=== PATIENT | male | born 1995 | race Caucasian/White ===

== ENCOUNTER 2025-09-06 16:34 | Emergency (ER) | payer OTHER ==
[~2025-09-06] VITALS: Ht 167.6 cm; Wt 85.3 kg
[2025-09-06 17:14] LABS: APPEARANCE,URINE CLEAR (CLEAR); BLOOD, URINE NEGATIVE Ery/uL (NEGATIVE); LEUKOCYTE ESTERASE ,URINE NEGATIVE (NEGATIVE); NITRITE, URINE NEGATIVE (NEGATIVE); UGLUCOSE NEGATIVE (NEGATIVE)
[2025-09-06] MEDS ORDERED: KETOROLAC TROMETHAMINE INJ 30 MG/ML VIAL ONE (17:38)
[2025-09-06] MEDS: KETOROLAC TROMETHAMINE INJ 30 MG/ML VIAL IM ONE (17:44)
[2025-09-06 17:53] LABS: PLATELET COUNT (AUTO) 225 K/uL (150-450); RED BLOOD CELL COUNT(AUTO) 4.68 MIL/uL (4.5-6.0); RED CELL DISTRIBUTION WIDTH 13.4 % (11.5-15.0); WHITE BLOOD COUNT (AUTO) 8.4 K/uL (4.3-11.0)
[2025-09-06 17:54] LABS: CALCIUM, SERUM 8.5 mg/dL (8.5-10.1); CREATININE 0.9 mg/dL (0.6-1.3); SODIUM SERUM 139.0 mmol/L (136-145); UREA NITROGEN, BLOOD 12.0 mg/dL (7-18)
[2025-09-06 18:01] LABS: ASPARTATE AMINOTRANSFERASE 25.0 U/L (15-37); TOTAL PROTEIN, SERUM 7.1 g/dL (6.4-8.2)
[2025-09-06] MEDS ORDERED: CT SWABBABLE VALVE TRANS SET 1 EA INFUS.SET MC ONE (18:53)
[2025-09-06] MEDS ORDERED: IOHEXOL-300 100 ML VIAL IV ONE (18:53)
[2025-09-06] MEDS ORDERED: IV NS 0.9% 0 ML IV ONE (18:53)
[2025-09-06] MEDS ORDERED: IV NS 0.9% 1,000 ML BAG IV ONE (19:00)
[2025-09-06] MEDS ORDERED: MORPHINE SULFATE INJ 2 MG/ML DISP.SYRIN IV ONE (19:00)
[2025-09-06] MEDS ORDERED: ONDANSETRON HCL/PF 4 MG/2 ML VIAL IV ONE (19:00)
[2025-09-06] MEDS ORDERED: ONDANSETRON HCL/PF 4 MG/2 ML VIAL ONE (19:06)
[2025-09-06] MEDS ORDERED: MORPHINE SULFATE INJ 4 MG/ML DISP.SYRIN ONE (19:06)
[2025-09-06] MEDS ORDERED: POTASSIUM CHLORIDE 20 MEQ TAB.PRT.SR PO ONE (19:07)
[2025-09-06] MEDS ORDERED: oxyCODONE/APAP (5/325 MG) 1 UDTAB TABLET ONE (19:10)
[2025-09-06] MEDS: POTASSIUM CHLORIDE 20 MEQ TAB.PRT.SR PO ONE (19:11)
[2025-09-06] MEDS: oxyCODONE/APAP (5/325 MG) 1 UDTAB TABLET PO ONE (19:13)
[2025-09-06 19:16] VITALS: BP 143/89; TEMP 98.4; O2SAT 99
[2025-09-08 07:08] LABS: CHLAMYDIA TRACHOMATIS NAA Negative (Negative); NEISSERIA GONORRHOEAE NAA Negative (Negative)
== END 2025-09-06 19:16 | disposition home or self-care (01) ==
LOC: ER 16:34
DX: N50.811 Right testicular pain (principal); K50.90 Crohn's disease, unspecified, without complications; Z87.19 Personal history of other diseases of the digestive system; Z98.890 Other specified postprocedural states
CPT/HCPCS: 99285; 96372; 76870; 85025; 80048; 80076; 81003; 36415; 87491; 87591; J1885; J7030; J2270; J2405; J7050; Q9967

== ENCOUNTER 2025-09-12 10:53 | Emergency (ER) | payer OTHER ==
[~2025-09-12] VITALS: Ht 167.6 cm; Wt 85.3 kg
[2025-09-12 11:54] LABS: PLATELET COUNT (AUTO) 263 K/uL (150-450); RED BLOOD CELL COUNT(AUTO) 4.82 MIL/uL (4.5-6.0); RED CELL DISTRIBUTION WIDTH 13.0 % (11.5-15.0); WHITE BLOOD COUNT (AUTO) 8.8 K/uL (4.3-11.0)
[2025-09-12 12:01] LABS: CALCIUM, SERUM 9.2 mg/dL (8.5-10.1); CREATININE 1.0 mg/dL (0.6-1.3); SODIUM SERUM 141.0 mmol/L (136-145); UREA NITROGEN, BLOOD 10.0 mg/dL (7-18)
[2025-09-12 12:07] LABS: INR 1.03 (0.91-1.10)
[2025-09-12 12:10] LABS: LACTIC ACID 1.8 mmol/L (0.4-2.0)
[2025-09-12] MEDS ORDERED: IOHEXOL-350 100 ML VIAL IV ONE (12:10)
[2025-09-12] MEDS ORDERED: ENOXAPARIN SODIUM 80 MG/0.8 ML DISP.SYRIN SQ ONE (14:00)
[2025-09-12] MEDS ORDERED: MORPHINE SULFATE INJ 4 MG/ML DISP.SYRIN ONE ×3 (14:21→20:11)
[2025-09-12] MEDS: MORPHINE SULFATE INJ 2 MG/ML DISP.SYRIN IV ONE ×3 (14:26→20:14)
[2025-09-12] MEDS ORDERED: ENOXAPARIN SODIUM 30 MG/0.3 ML DISP.SYRIN ONE (14:42)
[2025-09-12] MEDS ORDERED: ENOXAPARIN SODIUM 100 MG/ML DISP.SYRIN SQ ONE (14:44)
[2025-09-12] MEDS: ENOXAPARIN SODIUM 80 MG/0.8 ML DISP.SYRIN SQ ONE (14:50)
[2025-09-12] MEDS ORDERED: FLUO10CA29 PO (15:01)
[2025-09-12] MEDS ORDERED: MIRT-90 PO (15:01)
[2025-09-12 21:30] VITALS: BP 142/95; TEMP 98.2; O2SAT 95
== END 2025-09-12 22:05 | disposition short-term general hospital (02) ==
LOC: ER 10:59
DX: I82.421 Acute embolism and thrombosis of right iliac vein (principal); K50.90 Crohn's disease, unspecified, without complications; N50.811 Right testicular pain; Z87.19 Personal history of other diseases of the digestive system
CPT/HCPCS: 99291; 96374; 75635; 93971; 93926; 85025; 80048; 83605; 36415; 85730; 96372; 96376; J2270 ×3; J1650; Q9967